=== PATIENT | female | born 1940 | race Caucasian/White ===

== ENCOUNTER → 2017-12-01 | Outpatient (CLI) | payer MEDICARE | END | disposition home or self-care (01) | LOC: CFH 11:16 | PROVIDERS: ATTEND Nurse Practitioner Women's Health | DX: Z12.31 Encounter for screening mammogram for malignant neoplasm of breast (principal) | CPT/HCPCS: 77067 ==

== ENCOUNTER → 2018-12-22 | Outpatient (CLI) | payer MEDICARE | END | disposition home or self-care (01) | LOC: CFH 13:17 | PROVIDERS: ATTEND Nurse Practitioner Women's Health | DX: Z12.31 Encounter for screening mammogram for malignant neoplasm of breast (principal); Z13.820 Encounter for screening for osteoporosis | CPT/HCPCS: 77067 ==

== ENCOUNTER → 2018-12-29 | Outpatient (CLI) | payer MEDICARE | END | disposition home or self-care (01) | LOC: CFH 08:51 | PROVIDERS: ATTEND Nurse Practitioner Women's Health | DX: M85.88 Other specified disorders of bone density and structure, other site (principal) | CPT/HCPCS: 77080 ==